=== PATIENT | male | born 1960 | race Caucasian/White ===

== ENCOUNTER 2017-04-23 07:01 | Day surgery (SDC) | payer BC, OTHER ==
[~2017-04-23 07:01] MED LIST: RINGER'S SOLUTION,LACTATED 1,000 ML IV PRN; ceFAZolin SODIUM 1 GM VIAL IV PRN
[2017-04-23] MEDS ORDERED: RINGER'S SOLUTION,LACTATED 1,000 ML IV ONE (07:30)
[2017-04-23] MEDS ORDERED: BUPIVACAINE HCL 50 ML VIAL IJ ONE ×2 (08:10)
[2017-04-23 09:26] VITALS: BP 124/75
--- NOTE | 2017-04-23 09:43 | OR ---
Operative Report - Dictated Report Narrative: Date: 04/23/2017 Physician: Michele Thorpe M.D. [employer]: Murtaza Finney PA-C Preoperative diagnosis: Right carpal tunnel syndrome Postoperative diagnosis: Right carpal tunnel syndrome Procedure: Endoscopic right carpal tunnel release Anesthesia: MAC plus local Complications: None Estimated blood loss: Minimal Tourniquet time: 9 Minutes at 250 mmHg Specimens: None Retained implants: None Drains: None Indications: Mr. Raphael Is a 56-year-old gentleman who has been followed in my clinic with complaints of carpal tunnel syndrome. Physical exam as well as diagnostic testing showed compression of the median nerve compatible with carpal tunnel syndrome. Conservative measures have failed including but not limited to activity modification, medications, and/or bracing. The risks, benefits, and alternatives were discussed in clinic. The risks being bleeding, infection, nerve, tendon, blood vessel injury, persistent pain, wound competitions, weakness, palm pain, need for additional procedures, and persistent symptoms. Consent was obtained in the clinic. Procedure: After marking the correct extremity in the preoperative holding area, a timeout was performed in the operating room. IV antibiotics consisting of Ancef were administered prior to the procedure. A well-padded tourniquet was applied to the operative upper arm. The arm was exsanguinated and the tourniquet was inflated to 250 mmHg. 0.5% Marcaine without epinephrine was infused into the projected portal sites. Using Loupe magnification, a transverse incision was made in the proximal wrist flexion crease just ulnar to the ulnar to the palmaris longus tendon or in line with approximately the ring finger. Blunt dissection and hemostasis with bipolar cautery was utilized down to the forearm fascia. The forearm fascia was split longitudinally just ulnar to the palmaris longus exposing the entry into the carpal tunnel. A [place] was placed under the transverse carpal ligament elevating the soft tissues under the dorsal aspect of the transverse carpal ligament. This was confirmed to be under the transverse carpal ligament based on the corrugated nature of the tissue. Once we had removed soft tissues from the transverse carpal ligament, a blunt trocar and cannula was introduced under the transverse carpal ligament exiting the palm through a wendy incision. The hand was then placed in a extension holding device and the camera was introduced into the cannula. A probe was utilized in order to ensure that all soft tissues were elevated off the dorsal aspect of the transverse carpal ligament and ensuring that all tissues were running transversely. No vascular or neurologic tissues were visualized. The push, followed by probe, followed by hook blades was utilized to transect the distal one half of the transverse carpal ligament. This allowed for ingress of fat. The camera was then placed distally looking proximally, and the proximal one half of the transverse carpal ligament was transected using the hook blade. This again allowed for ingress of fat. The probe blade was utilized in order to release any additional remaining fibers. Once it was felt that the transverse carpal ligament was completely transected, the blunt trocar was reintroduced into the trocar and removed in whole. A [place] was utilized in order to visualize the carpal tunnel ensuring that the transverse carpal ligament was completely released using a [place]. The distal forearm fascia was released ensuring that the median nerve was completely decompressed utilizing tenotomy scissors. Once it was felt that all the tissues overlying the median nerve were completely released, the wounds were thoroughly irrigated with saline which passed freely from the proximal to distal portal holes. Tourniquet was deflated and hemostasis was obtained with pressure as well as bipolar cautery. Once bleeding had resolved and there was no excessive bleeding , the wounds were closed with interrupted nylon. Xeroform, 4 x 4's, soft roll, and a well-padded dorsal short arm wrist splint was applied, and the patient was awoken and transferred to the postanesthesia care unit in stable condition. All sponge, needle, blade, and instrument counts were correct prior to closing the wounds. Additional 0.5% Marc[place] without epinephrine was infused into the skin edges for pain control.
== END 2017-04-23 07:02 | disposition home or self-care (01) ==
LOC: AMB 07:01
PROVIDERS: ATTEND Orthopaedic Surgery
PROC: 01N54ZZ Release Median Nerve, Percutaneous Endoscopic Approach (ICD-10-PCS; principal; 2017-04-23 08:00)
DX: G56.01 Carpal tunnel syndrome, right upper limb (principal); E11.9 Type 2 diabetes mellitus without complications; Z79.84 Long term (current) use of oral hypoglycemic drugs; E03.9 Hypothyroidism, unspecified; G47.33 Obstructive sleep apnea (adult) (pediatric); M06.9 Rheumatoid arthritis, unspecified

== ENCOUNTER 2017-12-06 19:20 | Inpatient (IN) ==
[2017-12-06] MEDS ORDERED: RINGER'S SOLUTION,LACTATED 1,000 ML IV ONE (20:43)
[2017-12-06 21:02] LABS: Hematocrit 35.6 % (42.0-52.0); Mean Cell Volume 92.5 fl (78-100); Mean Corpuscular Hemoglobin 31.2 pg (27-31); Mean Corpuscular Hgb Conc 33.7 g/dl (32-36); Mean Platelet Volume 8.7 fl (6.0-9.5); Neutrophil % 84.6 % (42-75.0); Platelet Count 240 K/mm3 (150-450); Red Blood Count 3.85 M/mm3 (4.7-6.0); White Blood Count 9.5 K/mm3 (4.0-10.5)
[2017-12-06] MEDS ORDERED: KETOROLAC TROMETHAMINE 30 MG/ML VIAL IV ONE (21:08)
[2017-12-06] MEDS ORDERED: MAG HYDROX/ALUMINUM HYD/SIMETH 30 ML UDC PO ONE (21:08)
[2017-12-06] MEDS ORDERED: SUCRALFATE 1 G/10 ML UDC PO ONE (21:08)
[2017-12-06] MEDS ORDERED: LIDOCAINE HCL 20 ML UDC PO ONE (21:08)
[2017-12-06] MEDS ORDERED: KETOROLAC TROMETHAMINE 30 MG/ML VIAL ONE (21:11)
[2017-12-06 21:17] LABS: BUN/Creatinine Ratio 16.7 (9.0-21.6)
[2017-12-06 21:18] LABS: Albumin * 3.1 gm/dl (3.4-5.0); Anion Gap 9.7 mmol/L (6.8-13.8); Bilirubin, Total 0.3 mg/dL (0.0-1.1); Ca. Corrected For Albumin 9.5 mg/dL (8.4-10.2); Calcium * 9.1 mg/dL (7.9-10.9); Carbon Dioxide 34.2 mmol/L (24-32.6); Potassium 3.9 mmol/L (3.4-4.6); Total Protein 7.3 gm/dL (6.2-8.2)
[2017-12-06 21:39] LABS: Urine Bilirubin Negative (NEGATIVE); Urine Blood Negative /ul (NEGATIVE); Urine Ketone Negative (NEGATIVE); Urine Nitrite Negative (NEGATIVE); Urine Protein Negative (NEGATIVE); Urine Urobilinogen Normal (NORMAL); Urine pH 7.5 pH (5.0-7.0)
--- NOTE | 2017-12-06 21:48 | ERNOTE ---
Abdominal HPI - Narrative Date of Service: 12/06/17 - General Chief Complaint: Abdominal Pain Time Seen by Provider: 12/06/17 20:39 Source: patient Exam Limitations: no limitations - Immun/Allergies/Home Medications Immunizatons: IMMUNIZATION HX Immunizations Up to Date Yes History of Influenza Vaccine No Hx Pneumococcal Vaccination No Allergies/Adverse Reactions: Allergies shellfish derived Allergy (Intermediate, Verified 12/06/17 19:40) SOB, HEAD AND THROAT SWELLING sulfamethoxazole [From Bactrim DS] Allergy (Intermediate, Verified 12/06/17 19: 40) TONGUE SWELLIONG, BLISTERS ON HANDS trimethoprim [From Bactrim DS] Allergy (Intermediate, Verified 12/06/17 19:40) TONGUE SWELLIONG, BLISTERS ON HANDS codeine [Codeine] Adverse Reaction (Mild, Verified 12/06/17 19:40) LIGHTHEADEDNESS Home Medications: HOME MEDICATIONS Diclofenac Sodium [Voltaren] 75 mg PO BID 11/28/15 [Last Taken Unknown] Glimepiride [Amaryl] 1 mg PO DAILY 04/16/17 [Last Taken Unknown] Levothyroxine Sodium [Synthroid] 175 mcg PO DAILY 04/16/17 [Last Taken Unknown] metFORMIN HCL [Glucophage] 1,000 mg PO BIDWM 04/16/17 [Last Taken Unknown] Leflunomide 20 mg PO DAILY 04/23/17 [Last Taken Unknown] Folic Acid 1 mg PO DAILY 12/04/17 [Last Taken Unknown] Methotrexate [Xatmep] 2.5 mg PO DAILY 12/04/17 [Last Taken Unknown] - History of Present Illness Narrative: Pt. comes in with c/o diffuse abdominal pain for weeks and has been seen here and by his PCP for this. Pt. states tath his PCP called him just prior to arrival and told him that he had pancreatitis and was told to come to the ER to be admitted to the hospital if he did not improve. Pt. Denies any NVD, SOB, CP , alleviating or aggravating factors. Timing: getting worse Quality: severe, sharpness Activities at Onset: none Modifying Factors - (Improves): Present: other - denies Modifying Factors - (Worsens): Present: other - denies Associated Symptoms: Absent: back pain, chest pain, neck pain, diarrhea-gross blood, diarrhea-mucous, fatigue, fever/chills, nausea, vomiting, shortness of breath, swelling/mass in abdomen, weakness Prior Abdominal Problems: Present: similar symptoms Prior Treatment: Present: recently seen, treated by physician. Absent: recently hospitalized, currently on antibiotics Review of Systems - Review of Systems Constitutional: Present: no symptoms reported. Absent: fever, chills, weakness , fatigue, malaise EYE: Present: no symptoms reported. Absent: eye pain, double vision ENT: Present: no symptoms reported. Absent: nose pain, nose congestion, nasal drainage, sore throat Respiratory: Present: no symptoms reported. Absent: shortness of breath, cough , wheezing Cardiology: Present: no symptoms reported. Absent: chest pain, palpitations, edema Gastrointestinal/Abdominal: Present: abdominal pain - diffuse. Absent: nausea, vomiting, diarrhea Genitourinary: Present: no symptoms reported. Absent: frequency, decreased urinary output Musculoskeletal: Present: no symptoms reported. Absent: back pain, neck pain, joint pain Skin: Present: no symptoms reported. Absent: rash, change in color Neurological: Present: no symptoms reported. Absent: headache, dizziness/light- headedness, weakness, numbness, tingling All Other Systems: All systems neg except as marked - Patient's Past Medical History Patient History - Medical: Diabetes Type 2, Hypothyroidism, Rheumatoid Arthritis Patient History - Cardiac/Respiratory: Deep Vein Thrombosis, Sleep Apnea Patient History - Cancer: Prostate Patient History - Surgical Procedures: Colonoscopy, T & A, ENT, Orthopedic Patient History - Other: None - Family History Father Family History - Medical: , Diabetes Type 2 Family History - Cardiac/Respiratory: No pertinent hx Family History - Cancer: No pertinent family hx, Colon Mother Family History - Medical: No pertinent hx, Rheumatoid Arthritis Family History - Cardiac/Respiratory: No pertinent hx Family History - Cancer: No pertinent family hx - Social History Living Situations: home Abuse History: No History of abuse Psych History: No pertinent hx Smoking Status: Never smoker Alcohol Use: none Drug Use: none - Immunizations Immunizations Up to Date: Yes Hx Pneumococcal Vaccination: No History of Influenza Vaccine: No Physical Exam - Physical Exam General Appearance: Present: wd/wn, alert, no apparent distress Head Exam: Present: normal inspection, no evidence of injury, no tenderness w palpation Eye Exam: Normal inspection: bilateral Ears, Nose, Throat: Present: normal ENT inspection, normal pharynx Neck: Present: normal inspection, nontender, supple, full range of motion. Absent: lymphadenopathy (R), lymphadenopathy (L) Respiratory: Present: no respiratory distress, normal breath sounds, no accessory muscle use, chest nontender, lungs clear Cardiovascular/Chest: Present: regular rate, rhythm, no murmur, normal peripheral pulses Gastrointestinal/Abdominal: Present: normal bowel sounds, nondistended, soft, no organomegaly, tenderness - LLQ RLQ and RUQ Back Exam: Present: normal inspection, normal range of motion, no CVA tenderness , no vertebral tenderness Extremity Exam: Present: normal inspection Neurological Exam: Present: alert, oriented, normal mood/affect, no motor/ sensory deficits Skin Exam: Present: normal color, warm/dry. Absent: pallor, skin rash ED Progress - Date and Time Seen: Date and Time: 12/06/17 22:31 Discussed with Janeth and as pt. has mild pancreatitis she feels that we can admit for observation adn treat gastritis at the same time. - Results and Orders Patient's Lab Results:: I have reviewed the patient's lab results. Results and Orders: Laboratory Results - last 24 hr 12/06/17 12/06/17 20:55 20:55 WBC 9.5 RBC 3.85 L Hgb 12.0 L Hct 35.6 L MCV 92.5 MCH 31.2 H MCHC 33.7 RDW 13.0 Plt Count 240 MPV 8.7 Immature Gran % (Auto) 0.40 Immature Gran # (Auto) 0.04 H Neutrophils % 84.6 H Lymphocytes % 6.5 L Monocytes % 6.3 Eosinophils % 1.5 Basophils % 0.7 Nucleated RBC % 0.0 Neutrophils # 8.0 H Lymphocytes # 0.61 L Monocytes # 0.6 Eosinophils # 0.1 Absolute Basophils 0.1 Sodium 134 Plasma Sodium 136 Potassium 3.9 D Chloride 94 L Carbon Dioxide 34.2 H Anion Gap 9.7 BUN 18 Creatinine 1.08 Est GFR (Non-Af Amer) 75 BUN/Creatinine Ratio 16.7 Random Glucose 253 H Calcium 9.1 Calcium Adj for Albumin 9.5 Total Bilirubin 0.3 AST 22 ALT 50 Alkaline Phosphatase 152 Total Protein 7.3 Albumin 3.1 L Amylase 71 Lipase 475 H - Vital Signs Patient's Vital Signs:: I have reviewed the patient's vital signs. Vital Signs: Vital Signs 12/06/17 12/06/17 12/06/17 19:32 20:35 21:02 Temperature 36.9 C 36.4 C L Pulse Rate 108 H 98 96 Respiratory 20 18 16 Rate Blood Pressure 146/83 150/94 155/88 O2 Sat by Pulse 97 98 98 Oximetry 12/06/17 21:37 Temperature 36.6 C Pulse Rate 88 Respiratory 16 Rate Blood Pressure 150/79 O2 Sat by Pulse 97 Oximetry - Progress/Reassessment Chief Complaint: Abdominal Pain Departure Clinical Impression: Pancreatitis Qualifiers: Chronicity: acute Pancreatitis type: unspecified pancreatitis type Acute pancreatitis complication: unspecified Qualified Code(s): K85.90 - Acute pancreatitis without necrosis or infection, unspecified Gastritis Qualifiers: Gastritis type: unspecified gastritis Chronicity: acute Gastritis bleeding: without bleeding Qualified Code(s): K29.00 - Acute gastritis without bleeding - Departure Disposition: Still a patient Condition: Fair Referrals: Colton Arce DO [Primary Care Provider] -
[2017-12-06 21:49] LABS: Urine Appearance Clear (CLEAR); Urine Bacteria TRACE; Urine Color Yellow; Urine RBC None Seen /hpf (0-5); Urine WBC None Seen /hpf (0-5)
[2017-12-06] MEDS ORDERED: MORPHINE SULFATE 2 MG/ML DISP.SYRIN IV ONE (22:58)
[2017-12-06] MEDS ORDERED: MORPHINE SULFATE 2 MG/ML DISP.SYRIN ONE (23:24)
[2017-12-06] MEDS: RINGER'S SOLUTION,LACTATED 1,000 ML IV PRN (23:29)
--- NOTE | 2017-12-06 23:41 | HP ---
Chief Complaint - Chief Complaint Date of Service: 12/06/17 Time of Service: 23:38 Chief Complaint: " Abdominal Pain," History of Present Illness: Mr. Raphael is 57-yr-old WM pt of Dr. Colton long with a PMH of: DVT, DM II, Hypothyroidism,Prostate ca, Rheumatoid Arthritis. Pt states that for the past 3 weeks, he has had abdominal discomfort. He describes it like sensation of being too full like "after eating a big thanks giving dinner." For the last 1 week, the abdominal discomfort has progressed to being more painful and has just dealt with it. On Monday 12/04, the pain became so severe and it radiated to the LT chest and back. He came to the [facility] ER where he was worked-up for chest pain which was determined to be negative of ACS/PA. He was discharged on Tramadol. On Tuesday 12/05, he had generalized abdominal pain again. He states that the pain was relieved by the pain medications he takes for his Arthritis. He reports about 10 lbs weight loss in the last 1 & 1/2 weeks. He states that he has the sensation of feeling really full for a long time and therefore has no appetite. He had Abdominal CT scan during today's follow-up with his PCP. He later received a call from the provider about findings concerning for Acute Pancreatitis and that he needed to present to the ED for further evaluation. At the ED labs showed his Amylase was in NR at 71, whereas his Lipase was elevated at 475. He denies any alcohol use and no new recent medications. The CT scan also showed small intermediate pulmonary nodules in the RT lung base with the largest measuring upto 5 mm but appears similar to prior exam on 01/04/17. He will be admitted under observation for Acute pancreatitis and clinical signs of Gastroparesis. - Patient's Past Medical History Patient History - Medical: Diabetes Type 2, Hypothyroidism, Rheumatoid Arthritis Patient History - Cardiac/Respiratory: Deep Vein Thrombosis, Sleep Apnea Patient History - Cancer: Prostate Patient History - Surgical Procedures: Colonoscopy, T & A, ENT, Orthopedic Patient History - Other: None - Family History Father Family History - Medical: , Diabetes Type 2 Family History - Cardiac/Respiratory: No pertinent hx Family History - Cancer: No pertinent family hx, Colon Mother Family History - Medical: No pertinent hx, Rheumatoid Arthritis Family History - Cardiac/Respiratory: No pertinent hx Family History - Cancer: No pertinent family hx - Social History Living Situations: home Abuse History: No History of abuse Psych History: No pertinent hx Smoking Status: Never smoker Alcohol Use: none Drug Use: none - Immunizations Immunizations Up to Date: Yes Hx Pneumococcal Vaccination: No History of Influenza Vaccine: No Review Of Systems (GEN) - Review of Systems Generalized/Overall Review: Present: Chills, Malaise, Weight loss. Absent: Weakness, Fever, Diaphoresis, Fatigue EENTM: Absent: Eye Pain, Blurred Vision, Nose Congestion Respiratory: Absent: Cough, Shortness of Breath, Orthopnea Cardiac: Absent: Chest Pain, Edema, Palpitations, Syncope Abdominal: Present: Abdominal Pain. Absent: Nausea, Vomiting, Hematemesis, Constipation, Diarrhea Genitourinary: Absent: Burning, Itching, Urgency, Hesitancy, Incontinent Musculoskeletal: Absent: Joint Pain, Back Pain, Joint Swelling Neurological: Absent: Headache, Anxiety, Depressed, Weakness Skin: Absent: Dryness, Lesions Endocrine: Present: Intolerance to Heat, Flushing. Absent: Excessive Sweating, Increased Thirst Misc: All systems neg except as marked Allergies/Adverse Reactions: Allergies Allergy/AdvReac Type Severity Reaction Status Date / Time shellfish derived Allergy Intermediate SOB, HEAD Verified 12/06/17 19:40 AND THROAT SWELLING sulfamethoxazole Allergy Intermediate TONGUE Verified 12/06/17 19:40 [From Bactrim DS] SWELLIONG, BLISTERS ON HANDS trimethoprim Allergy Intermediate TONGUE Verified 12/06/17 19:40 [From Bactrim DS] SWELLIONG, BLISTERS ON HANDS codeine [Codeine] AdvReac Mild LIGHTHEADED Verified 12/06/17 19:40 NESS Home Medications: HOME MEDICATIONS Diclofenac Sodium [Voltaren] 75 mg PO BID 11/28/15 [Last Taken Unknown] Glimepiride [Amaryl] 1 mg PO DAILY 04/16/17 [Last Taken Unknown] Levothyroxine Sodium [Synthroid] 175 mcg PO DAILY 04/16/17 [Last Taken Unknown] metFORMIN HCL [Glucophage] 1,000 mg PO BIDWM 04/16/17 [Last Taken Unknown] Leflunomide 20 mg PO DAILY 04/23/17 [Last Taken Unknown] Folic Acid 1 mg PO DAILY 12/04/17 [Last Taken Unknown] Methotrexate [Xatmep] 10 mg PO Q7D 12/04/17 [Last Taken 12/03/17 07:00] Hydrochlorothiazide 25 mg PO DAILY 12/07/17 [Last Taken Unknown] Exam - Exam Vital Signs: Vital Signs - Last Taken Temp 36.7 C 12/06/17 22:19 Pulse 80 12/06/17 22:19 Resp 16 12/06/17 22:19 BP 145/71 12/06/17 22:19 Pulse Ox 98 12/06/17 22:19 Constitutional: Present: Alert, No distress ENT Exam: Present: normal ENT inspection Eye Exam: bilateral eye: normal inspection, PERRL Neck: Present: non-tender, full range of motion, supple Back Exam: Present: normal inspection, no CVA tenderness Breasts: Present: Exam deferred Respiratory: Present: lungs clear, No rales, No wheezing Cardiovascular/Chest: Present: normal peripheral pulses, regular rate, rhythm, no chest tenderness Abdomen: Present: Normal bowel sounds, obese, tender - all over . /Rectal: Present: Exam deferred Extremity: Present: normal range of motion, non-tender, normal inspection Skin Exam: Present: warm/dry, no cyanosis Lymphatic: Present: no adenopathy Neurologic: Present: alert, normal mood/affect, oriented x 3 Appearance: Present: appropriate appearance, appropriate insight Eye contact: Present: cooperative, good eye contact, normal speech Thoughts: Present: normal thought pattern, no apparent hallucination Diagnostic Studies: Laboratory Results WBC 9.5 K/mm3 (4.0-10.5) 12/06/17 20:55 RBC 3.85 M/mm3 (4.7-6.0) L 12/06/17 20:55 Hgb 12.0 gm/dL (13.5-18.0) L 12/06/17 20:55 Hct 35.6 % (42.0-52.0) L 12/06/17 20:55 MCV 92.5 fl (78-100) 12/06/17 20:55 MCH 31.2 pg (27-31) H 12/06/17 20:55 MCHC 33.7 g/dl (32-36) 12/06/17 20:55 RDW 13.0 % (11.5-14.0) 12/06/17 20:55 Plt Count 240 K/mm3 (150-450) 12/06/17 20:55 MPV 8.7 fl (6.0-9.5) 12/06/17 20:55 Immature Gran % (Auto) 0.40 % (0.001-0.429) 12/06/17 20:55 Immature Gran # (Auto) 0.04 K/mm3 (0.000-0.0310) H 12/06/17 20:55 Neutrophils % 84.6 % (42-75.0) H 12/06/17 20:55 Lymphocytes % 6.5 % (20-51) L 12/06/17 20:55 Monocytes % 6.3 % (0.0-9) 12/06/17 20:55 Eosinophils % 1.5 % (0.0-3.0) 12/06/17 20: Basophils % 0.7 % (0.0-1.0) 12/06/17 20:55 Nucleated RBC % 0.0 k/mm3 (0-1) 12/06/17 20:55 Neutrophils # 8.0 K/mm3 (1.3-6.0) H 12/06/17 20:55 Lymphocytes # 0.61 k/mm3 (1.5-3.5) L 12/06/17 20:55 Monocytes # 0.6 k/mm3 (0.0-1.0) 12/06/17 20:55 Eosinophils # 0.1 k/mm3 (0.0-0.7) 12/06/17 20:55 Absolute Basophils 0.1 k/mm3 (0.0-0.1) 12/06/17 20:55 Sodium 134 mmol/L (132-142) 12/06/17 20:55 Plasma Sodium 136 mmol/L (130-142) 12/06/17 20:55 Potassium 3.9 mmol/L (3.4-4.6) D 12/06/17 20:55 Chloride 94 mmol/L (97-106) L 12/06/17 20:55 Carbon Dioxide 34.2 mmol/L (24-32.6) H 12/06/17 20:55 Anion Gap 9.7 mmol/L (6.8-13.8) 12/06/17 20:55 BUN 18 mg/dL (6-23) 12/06/17 20:55 Creatinine 1.08 mg/dL (0.4-1.4) 12/06/17 20:55 Est GFR (Non-Af Amer) 75 mL/min (60-130) 12/06/17 20:55 BUN/Creatinine Ratio 16.7 (9.0-21.6) 12/06/17 20:55 Random Glucose 253 mg/dL (70-110) H 12/06/17 20:55 Calcium 9.1 mg/dL (7.9-10.9) 12/06/17 20:55 Calcium Adj for Albumin 9.5 mg/dL (8.4-10.2) 12/06/17 20:55 Total Bilirubin 0.3 mg/dL (0.0-1.1) 12/06/17 20:55 AST 22 U/L (0-48) 12/06/17 20:55 ALT 50 U/L (19-67) 12/06/17 20:55 Alkaline Phosphatase 152 U/L (50-170) 12/06/17 20:55 Total Protein 7.3 gm/dL (6.2-8.2) 12/06/17 20:55 Albumin 3.1 gm/dl (3.4-5.0) L 12/06/17 20:55 Amylase 71 U/L (25-115) 12/06/17 20:55 Lipase 475 U/L (73-393) H 12/06/17 20:55 Urine Color Yellow 12/06/17 21:34 Urine Appearance Clear (CLEAR) 12/06/17 21:34 Urine pH 7.5 pH (5.0-7.0) 12/06/17 21:34 Ur Specific [place] 1.010 SP.GR. (1.005-1.030) 12/06/17 21:34 Urine Protein Negative mg/dL (NEGATIVE) 12/06/17 21:34 Urine Glucose (UA) 250 mg/dL (NEGATIVE) H 12/06/17 21:34 Urine Ketones Negative mg/dL (NEGATIVE) 12/06/17 21:34 Urine Blood Negative /ul (NEGATIVE) 12/06/17 21:34 Urine Nitrate Negative (NEGATIVE) 12/06/17 21:34 Urine Bilirubin Negative mg/dl (NEGATIVE) 12/06/17 21:34 Urine Urobilinogen Normal EU/dl (NORMAL) 12/06/17 21:34 Ur Leukocyte Esterase Negative /ul (NEGATIVE) 12/06/17 21:34 Urine RBC None seen /hpf (0-5) 12/06/17 21:34 Urine WBC None seen /hpf (0-5) 18 21:34 Ur Epithelial Cells None seen /hpf (0-5) 18 21:34 Urine Bacteria Trace (NONE) 12/06/17 21:34 Urine Culture Comments No culture indicated 12/06/17 21:34 Assessment/Plan - Assessment/Plan (1) Acute pancreatitis Assessment: CT had findings concerning for Acute Pancreatitis, and Lipase was minimally elevated. Will provide aggressive IVF hydration with LR @ 250 ml/hour to prevent pancreatic necrosis. Trend lipase. Problem: Acute (2) Gastroparesis Assessment: Pt reports early satiety. He is not ill appearing on exam. He has epigasric and lefy hypochodriac region tenderness without rebound and guarding. gastroparesis is likely due to his Diabetes. Abdominal CT did not show any dilatation of the small intestine and the colon. Initial management involves dietary modifications- small frequent meals low in fiber, milk, gas forming foods and fat & Good glycemic control of < 200mg/DL & pharmacologic therapy with prokinetics such as Reglan q.i.d before meals- Avoid using more than 3 months due to risk of tardive dyskenesia. Consult Surgery -may need Gastric scintigraphy/radionucleotide scan to measure gastric emptying of solid and liquids. IF gastroparesis is confirmed, the best treatment is still as outline above: glucose control, diet modifications- fat slows gastric emptying. He will need to also avoid narcotics- Will stop Tramadol. Problem: Acute (3) Diabetes Assessment: Last HgA1c- 6.30 IN 06/08/17. Problem: Chronic Qualifiers: Diabetes mellitus type: type 2 (4) Rheumatoid arthritis Problem: Chronic (5) Prostate CA Problem: Chronic (6) DVT (deep venous thrombosis) Problem: Chronic
[2017-12-07] MEDS ORDERED: KETOROLAC TROMETHAMINE 15 MG/ML VIAL IV PRN ×3 (00:53→07:32)
[2017-12-07] MEDS ORDERED: ONDANSETRON HCL/PF 2 MG/ML VIAL IV PRN (00:53)
[2017-12-07] MEDS: RINGER'S SOLUTION,LACTATED 1,000 ML IV PRN ×5 (03:47→20:19)
[2017-12-07] MEDS: LEVOTHYROXINE SODIUM 175 MCG TABLET PO SCH (07:02)
[2017-12-07] MEDS ORDERED: BELLADONNA ALKALOIDS/PHENOBARB 60 ML BTL PO ONE (08:52)
[2017-12-07] MEDS ORDERED: SUCRALFATE 1 G/10 ML UDC PO ONE (08:52)
[2017-12-07] MEDS ORDERED: MAG HYDROX/ALUMINUM HYD/SIMETH 30 ML UDC PO ONE (08:52)
[2017-12-07] MEDS ORDERED: LIDOCAINE HCL 20 ML UDC PO ONE (08:52)
[2017-12-07] MEDS: LEFLUNOMIDE 20 MG TABLET PO SCH (09:24)
[2017-12-07] MEDS: PANTOPRAZOLE SODIUM 40 MG in NORMAL SALINE 100 ML IV SCH ×2 (09:24→20:25)
[2017-12-07] MEDS: HYDROCHLOROTHIAZIDE 25 MG TABLET PO SCH (09:24)
[2017-12-07] MEDS: FOLIC ACID 1 MG TABLET PO SCH (09:24)
[2017-12-07] MEDS: GLIMEPIRIDE 2 MG TABLET PO SCH (09:25)
[2017-12-07] MEDS: MORPHINE SULFATE 2 MG/ML DISP.SYRIN IV PRN ×6 (11:51→22:33)
--- NOTE | 2017-12-07 17:22 | PN ---
Subjective - Date and Time Seen Date: 12/07/17 Time: 17:21 Subjective Narrative: Patient still having abdominal pain. Has been using IV pain medication for relief. Symptoms also improve with GI cocktail and are worse right after eating. He has not been able to eat much. Attempted clear liquids today but needed to use viscous lidocaine prior to eating to be able to tolerate eating. No fever, chills, nausea, or vomiting. Objective - Vitals Vitals: Last Vital Signs Temp 37.0 C 12/07/17 14:53 Pulse 95 12/07/17 14:53 Resp 18 12/07/17 14:53 BP 140/93 12/07/17 14:53 Pulse Ox 95 12/07/17 14:53 - Exam Constitutional: Present: Alert, Oriented x3, Cooperative ENT Exam: Present: hearing grossly normal Respiratory: Present: lungs clear, normal breath sounds Cardiovascular/Chest: Present: regular rate, rhythm, no murmur Abdomen: Present: soft, nondistended, no rebound tenderness, no hepatospenomegaly, no masses, tender - Epigastric Skin Exam: Present: normal color, warm/dry, no cyanosis Assessment/Plan Plan Narrative: Saul is a 57 yo male with acute pancreatitits and gastritis. Pancreatic enzymes are improving. Pain is gradually getting better but he has recently used IV pain medication. Advancing diet and tolerating if using viscous lidocaine prior to eating. Will continue to advance diet and have him try eating without the lidocaine prior to meal. If he continues to improve expect discharge to home tomorrow. Continue PPI. - Problems/Diagnosis (1) Acute pancreatitis Problem: Acute (2) Gastritis Problem: Acute Qualifiers: Gastritis type: unspecified gastritis Chronicity: acute Gastritis bleeding: without bleeding Qualified Code(s): K29.00 - Acute gastritis without bleeding
[2017-12-07] MEDS: LIDOCAINE HCL 20 ML UDC MM SCH ×2 (17:28→22:19)
[2017-12-08] MEDS: RINGER'S SOLUTION,LACTATED 1,000 ML IV PRN ×3 (00:25→08:35)
[2017-12-08] MEDS: MORPHINE SULFATE 2 MG/ML DISP.SYRIN IV PRN (06:43)
[2017-12-08] MEDS: LEVOTHYROXINE SODIUM 175 MCG TABLET PO SCH (07:08)
[2017-12-08 08:32] LABS: Hematocrit 32.6 % (42.0-52.0); Hemoglobin 10.9 gm/dL (13.5-18.0); Mean Cell Volume 94.2 fl (78-100); Mean Corpuscular Hemoglobin 31.5 pg (27-31); Mean Corpuscular Hgb Conc 33.4 g/dl (32-36); Mean Platelet Volume 8.9 fl (6.0-9.5); Neutrophil # 4.5 K/mm3 (1.3-6.0); Neutrophil % 74.8 % (42-75.0); Platelet Count 220 K/mm3 (150-450); Red Blood Count 3.46 M/mm3 (4.7-6.0)
[2017-12-08 08:48] LABS: Albumin * 2.6 gm/dl (3.4-5.0); Anion Gap 10.7 mmol/L (6.8-13.8); BUN/Creatinine Ratio 10.2 (9.0-21.6); Bilirubin, Total 0.3 mg/dL (0.0-1.1); Ca. Corrected For Albumin 9.6 mg/dL (8.4-10.2); Calcium * 8.8 mg/dL (7.9-10.9); Potassium 3.7 mmol/L (3.4-4.6); Total Protein 6.3 gm/dL (6.2-8.2)
[2017-12-08] MEDS: HYDROCHLOROTHIAZIDE 25 MG TABLET PO SCH (09:12)
[2017-12-08] MEDS: LEFLUNOMIDE 20 MG TABLET PO SCH (09:12)
[2017-12-08] MEDS: LIDOCAINE HCL 20 ML UDC MM SCH ×3 (09:12→16:25)
[2017-12-08] MEDS: FOLIC ACID 1 MG TABLET PO SCH (09:13)
[2017-12-08] MEDS: GLIMEPIRIDE 2 MG TABLET PO SCH (09:14)
[2017-12-08] MEDS: PANTOPRAZOLE SODIUM 40 MG in NORMAL SALINE 100 ML IV SCH (09:31)
--- NOTE | 2017-12-08 17:22 | DS ---
(1) Acute pancreatitis Problem: Acute (2) Gastritis Problem: Acute Qualifiers: Gastritis type: unspecified gastritis Chronicity: acute Gastritis bleeding: without bleeding Qualified Code(s): K29.00 - Acute gastritis without bleeding Description of Stay: Saul is a 57 yo male that was admitted for acute pancreatitis due to severe epigastric abdominal pain radiating to his back with elevated pancreatic enzymes and evidence of pancreatitis on an outpatient CT scan. He attempted to treat this on his own at home with clear liquid diet but pain continued to worsen and he was admitted for IV pain medication and fluid. He was made NPO, given IV fluids, and IV pain medication. His symptoms gradually improved and diet was advanced. He would have burning epigastric pain immediately with any food or water and it was suspected that he may also have gastritis and possibly esophagitis. He was started on PPI and given lidocaine prior to meals. This helped his symptoms which gradually became more tolerable. Amylase and lipase returned to normal levels and diet was advanced to low fat meals. He was feeling well enough for home discharge. He was educated to avoid fatty foods, alcohol, caffiene, tobacco, and chocolate. He will elevate the head of his bed and avoid eating late at night. He will follow up with me in clinic and if still having symptoms may see surgery for EGD. He will be continued on pantoprazole for the next month and was given a prescription of viscous lidocaine to use as needed to help nutrition. Procedures Performed: none Discharge Location: Home Disposition: Home self-care Condition: Fair Discharge Activity: Activity as tolerated Discharge Diet: Low fat/chol - Avoid spicy foods, caffiene, alcohol, tobacco, and chocolate Referrals: Colton Arce DO [Primary Care Provider] - One Week Problem Oriented Discharge Instructions to Patient/Family: Gastritis, Adult, [id number], Acute Pancreatitis, [id number], Form - Excuse from Work, School , or Physical Activity Prescriptions (Any new or edited meds): Lidocaine HCl [Lidocaine HCl Viscous 2%] 20 ml MM AC #300 ml Pantoprazole Sodium [Protonix] 40 mg PO DAILY #30 tab Complete Home Medications List: Complete Home Medication List: Glimepiride [Amaryl] 1 mg PO DAILY 04/16/17 Levothyroxine Sodium [Synthroid] 175 mcg PO DAILY 04/16/17 metFORMIN HCL [Glucophage] 1,000 mg PO BIDWM 04/16/17 Leflunomide 20 mg PO DAILY 04/23/17 Folic Acid 1 mg PO DAILY 12/04/17 Methotrexate [Xatmep] 10 mg PO Q7D 12/04/17 Hydrochlorothiazide [Hydrodiuril] 25 mg PO DAILY 12/07/17 Hydrochlorothiazide [Hydrodiuril] 25 mg PO DAILY tablet 12/08/17 Lidocaine HCl [Lidocaine HCl Viscous 2%] 20 ml MM AC #300 ml 12/08/17 Pantoprazole Sodium [Protonix] 40 mg PO DAILY #30 tab 12/08/17
[2017-12-09 00:17] VITALS: BP 126/85
== END 2017-12-08 19:25 | disposition home or self-care (01) | DRG 440 ==
LOC: ER 19:20 → MS 22:35 → OBSVTOIN 12-07 13:59
PROVIDERS: ADMIT Nurse Practitioner; ATTEND Family Medicine
DX: K85.90 Acute pancreatitis without necrosis or infection, unspecified; M06.9 Rheumatoid arthritis, unspecified; Z86.718 Personal history of other venous thrombosis and embolism; K29.00 Acute gastritis without bleeding; Z88.6 Allergy status to analgesic agent; K31.84 Gastroparesis; Z91.013 Allergy to seafood; Z88.1 Allergy status to other antibiotic agents; Z85.46 Personal history of malignant neoplasm of prostate; E11.43 Type 2 diabetes mellitus with diabetic autonomic (poly)neuropathy
CPT/HCPCS: 36415; 74019; 74020; 80053; 81001; 82150; 83690; 85025; 87338; 96361; 96374; 96375; 99285; G0378